=== PATIENT | female | born 1955 | race Caucasian/White ===

== ENCOUNTER 2016-10-27 05:25 | Day surgery (SDC) | payer OTHER ==
[~2016-10-27] VITALS: Ht 160 cm; Wt 114.5 kg
--- NOTE | ~2016-10-27 | O ---
[facility] [place] [address] OPERATIVE REPORT Name: ZHENG BRYANT Room #: 150-1 [facility]#: [id number] Admission: 10/27/16 Attend Phys: Heath Hatch MD Discharge: Date of : 53 Report #: [id number] THIS REPORT FOR: //name// CC: Heath Garay DATE OF SURGERY: 10/27/2016. PREOPERATIVE DIAGNOSIS: Nasal airway obstruction, turbinate hypertrophy. POSTOPERATIVE DIAGNOSES: Nasal airway obstruction, turbinate hypertrophy. PROCEDURE: Nasal septoplasty, submucous inferior turbinate resection with outfracturing. SURGEON: Hetah Hatch M.D. ANESTHESIA: General LMA. INDICATIONS: See H and P. TECHNIQUE: After obtaining consent, she was brought to the operating suite, appropriate time out was performed. General LMA anesthesia was obtained, the bed was turned 90 degrees, placed in a slight head up position. Note, the nose was prepped and draped in usual sterile fashion, 6 mL of 1% Xylocaine 1:100,000 epinephrine was injected on each side of the nasal septum. Later in the case, an additional 2 mL was injected on the medial surface of each inferior turbinate, care was made not to inject intravascularly. Findings noted on the septum was a generalized bowing of the septum to the right side anterior superiorly with a lower left inferior deviation of the quadrangular cartilage and the vomer, there is a small spur involving the upper portion of the perpendicular plate that was partially removed as was not greatly impacting the left side airway. A right-sided hemitransfixion incision was made with elevation of the mucosal flap off the quadrangular cartilage and the anterior portion of the vomer and perpendicular plate on the left side exposing the deviations on the quadrangular cartilage and the perpendicular plate and incisions were made in the inferior aspect of the quadrangular cartilage, now was removed after elevating the mucosal flap on the right side as well. Care was made not made any adjacent flap tears. The bony cartilaginous junction was disarticulated high, I then elevated the remainder of the flap over the perpendicular plate and vomer on the right side, allowed access to the deviations and the bony portion of the septum was removed with Bunnell-Roblero punches and Maykel forceps, small mucosal rent was made on the left side to allow for postoperative mucosal drainage. Previously harvested cartilage was trimmed, morcellized and placed back between the septal folds. This improved airway on the right side substantially. [facility] [address] [place] [address] OPERATIVE REPORT Name: ZHENG BRYANT Room #: 150-1 [facility]#: [id number] Admission: 10/27/16 Attend Phys: Heath Hatch MD Discharge: Date of : 53 Report #: [id number] Hemitransfixion incision was closed with simple interrupted 4-0 chromic sutures. Each inferior turbinate was then injected with the above local anesthetic and the turbinates for medialized with a [place] elevator and using a small caudal elevator, a small stab incision was made on the anterior surface of the inferior turbinate and the submucosal flap was elevated on the medial and medial inferior surfaces, a microdebrider blade was then used to reduce the submucosal component not same pocket, each inferior turbinate was then outfractured judiciously. Simple splints were designed and fashioned by myself, placed on each side of the septum and secured with a 3-0 Prolene suture. Merogel was then trifolded and placed between the septum and the inferior turbinate bilaterally. Nasopharynx was cleaned free of secretions allowed to awaken from anesthesia, went to recovery room in stable condition. ESTIMATED BLOOD LOSS: 75 mL. By: [id number] Heath Hatch MD /nitin
[~2016-10-27 05:25] MED LIST: ASPIR 8181 MG PO; COZAAR 50 MG TA50 M2 PO; FISH OIL 1,001000 M2 PO; LIPITOR80 MG PO; NEXIUM40 MG PO; RHINOCORT ALL8.43 ML NASAL; TOPROL XL25 MG PO; VITAMIN D1000 UNI1 PO; XANAX 0.5 MG0.5 MG PO
[2016-10-27 07:30] VITALS: BP 149/79
[2016-10-27 09:18] VITALS: BP 149/79
== END 2016-10-27 10:05 | disposition home or self-care (01) ==
LOC: OR 05:25 → TBA 05:25 → OR 10:05
DX: J34.3 Hypertrophy of nasal turbinates (principal); J34.89 Other specified disorders of nose and nasal sinuses
CPT/HCPCS: 50010; 50101; 50386; 50398; 50951; 51316; 51634; 53618; 53635; 62110; 62900; 70005